=== PATIENT | male | born 1955 | race African-American/Black ===

== ENCOUNTER 2020-10-16 02:07 | Emergency (ER) | payer OTHER ==
[~2020-10-16] VITALS: Ht 170.2 cm; Wt 74.8 kg
[2020-10-16 02:12] VITALS: Ht 170.2 cm; Wt 74.8 kg
[2020-10-16 03:21] VITALS: BP 122/78
== END 2020-10-16 03:21 | disposition other institution (70) ==
LOC: ED 02:07
DX: Z02.89 Encounter for other administrative examinations (principal)
CPT/HCPCS: 99406